=== PATIENT | female | born 1990 | race African-American/Black ===

== ENCOUNTER 2016-11-27 14:49 | Emergency (ER) | payer OTHER ==
[~2016-11-27] VITALS: Ht 162.6 cm; Wt 87.5 kg
[~2016-11-27 14:49] MED LIST: AUGMENTIN 875-1 EACH PO; FERRALET 90 TA1 EACH PO; FLONASE120 SPRAY/ NAS; FULL CIRCLE BIOT5 MG PO; IBUPROFEN600 M1 PO; LABETALOL HYDR200 MG PO; OXYCODONE-ACET1 EACH PO; PROAIR HFA8.5 GM INH; SE-NATAL 19 CH1 EACH PO; TAMIFLU75 M1 PO; TUSSIN MUC100 MG/5 M PO; ZITHROMAX Z-PA250 M1 PO
--- NOTE | 2016-11-27 15:22 | ED GENERAL ADULT ---
History of Present Illness General Chief Complaint: General Adult Stated Complaint: ELEVATED BP Source: patient, old records Exam Limitations: no limitations Vital Signs & Intake/Output Vital Signs & Intake/Output Vital Signs Date Time Temp Pulse Resp B/P Pulse O2 O2 Flow FiO2 Ox Delivery Rate 11/27 1916 86 158/98 11/27 1904 76 162/98 11/27 1827 74 156/96 11/27 1822 74 16 160/100 99 Room Air 11/27 1820 80 172/110 11/27 1813 88 172/110 11/27 1714 70 158/102 11/27 1635 74 168/118 11/27 1630 74 168/118 11/27 1609 Room Air 11/27 1606 70 16 180/118 98 Room Air 11/27 1556 96 16 210/122 11/27 1532 210/122 11/27 1454 97.6 77 18 192/122 Allergies Coded Allergies: NO KNOWN ALLERGIES (03/10/14) Reconcile Medications Hydrochlorothiazide 12.5 MG TABLET 1 TAB PO DAILY htn Ibuprofen 600 MG TABLET 1 TAB PO Q6H PRN PAIN (Reported) with food LABETALOL HCL (Labetalol Hydrochloride) 200 MG TABLET 1 TAB PO BID BP ( Reported) Labetalol HCl 300 MG TABLET 1 TAB PO BID htn Mometasone Furoate (Nasonex) 50 MCG SPRAY.PUMP 2 SPRAY NASB DAILY rhinitis Triage Note: PT SENT IN FROM [facility] FOR HTN. PT IS 1 MONTH POST . PT HAS HX OF HTN STATES SHE CALLED HER OB AND WAS TOLD THE SHE NEEDED TO GO TO PCP AND MAYBE HAVE MED INCREASED. PT DID AND THEY SENT HER HERE. Triage Nurses Notes Reviewed? yes Onset: Abrupt Duration: week(s): (1), intermittent, waxing and waning Timing: remote history Injury Environment: home Severity: mild Severity Numbers: 1 No Modifying Factors: none Associated Symptoms: DENIES : No Patient currently breastfeeds: No HPI: 26-year-old female 1 month with history of chronic hypertension presents to emergency room on labetalol 200 mg twice a day throughout her and was on lisinopril hydrochlorothiazide prior to her after she was seen by her primary care physician today and found to be hypertensive and sent here for further workup. The patient states that she was seen by her time lock expert earlier this week at which time she was told her blood pressure is high and to follow up as she was doing with her primary care today. She's been compliant with her medication. She denies any chest pain headache nausea vomiting, vision changes abdominal pain dizziness lightheadedness. She denies any complaints at this time she states that she does check her blood pressure at home and it is normally 140-160/70-90. no history of preeclampsai (JUICE FERNÁNDEZ) Past History Travel History Traveled to [place] past 21 day No Medical History Any Pertinent Medical History? see below for history Neurological: NONE EENT: NONE Cardiovascular: hypertension Respiratory: NONE Gastrointestinal: NONE Hepatic: NONE Renal: NONE Musculoskeletal: NONE Psychiatric: NONE Endocrine: NONE Blood Disorders: NONE Cancer(s): NONE GAMING HOST/Reproductive: NONE History of MRSA: Yes History of VRE: No History of CDIFF: No Surgical History Surgical History: non-contributory (5 DAYS AGO) Psychosocial History Who do you live with Mother What is your primary language Lao Tobacco Use: Never used ETOH Use: denies use Illicit Drug Use: denies illicit drug use Family History Family History, If Any: Relation not specified for: FHx: hypertension Hx Contributory? No (JUICE FERNÁNDEZ) Review of Systems Review of Systems Constitutional: Reports: see HPI. All Other Systems: Reviewed and Negative Comments Review of systems: See HPI, All other systems negative. Constitutional, no chills no fever, no malaise no weight loss HEENT: No visual changes no sore throat no congestion, no ear pain Cardiovascular: No chest pain , no palpitation , no orthopnea no ankle swelling Skin, no jaundice no rashes, no change in skin Respiratory: No dyspnea no cough no sputum no hemoptysis GI: No nausea no vomiting, no diarrhea, no bloating/constipation : No dysuria No hematuria, no frequency, no discharge Muscle skeletal: No joint pain, no joint swelling, no back pain, no neck pain, Neurologic: No numbness no confusion, no headache Psych: No stress no anxiety no depression,. Heme/endocrine: No bruising no bleeding no polyuria no polydipsia Immunology: No lymphadenopathy, no splenectomy (JUICE FERNÁNDEZ) Physical Exam Physical Exam General Appearance: well developed/nourished, alert, awake Comments: Well-developed well-nourished person in no acute distress HEENT: Normal EENT exam; PERRL, EOMI, no nystagmus. HEAD is atraumatic. moist mucous membranes. Neck: Supple, no lymphadenopathy, normal range of motion without pain or tenderness Back: Nontender, no CVA tenderness. Full range of motion Cardiovascular: Regular rate and rhythms no murmurs rubs or gallops, normal JVP Respiratory: Chest nontender.There were no bony deformities, no asymmetry. No respiratory distress. Patient speaking in full complete sentences. Breath sounds clear to auscultation bilaterally: NO W/R/R Abdomen: Soft, nontender nondistended, no appreciable organomegaly. Normal bowel sounds. No rebound/guarding, No appreciable enlargement of the abdominal aorta, No ascites. Extremity: No edema, full range of motion of extremities, normal and equal pulses bilaterally, 5 out of 5 strength noted to bilateral upper and lower extremities Neuro: Alert oriented x3, motor sensory normal, cranial nerves II through XII grossly intact. There were no obvious focal neurologic abnormalities. Skin: No appreciable rash on exposed skin, skin is warm and dry. Psych: Mood and affect is normal, memory and judgment is normal. Core Measures ACS in differential dx? No CVA/TIA Diagnosis: No Severe Sepsis Present: No Septic Shock Present: No (LISANDRA FONTENOT,JUICE) Progress Differential Diagnoses I considered the following diagnoses in my evaluation of the patient: [ Hypertensive urgency versus emergency slight abnormality acute kidney injury preeclampsia Plan of Care: Orders Procedure Date/time Status URINALYSIS 11/27 151 Complete COMPREHENSIVE METABOLIC PANEL 11/27 151 Complete CBC WITHOUT DIFFERENTIAL 11/27 151 Complete Laboratory Tests 11/27/16 1631: Urine Color STRAW, Urine Clarity CLEAR, Urine pH 7.0, Ur Specific [place] <= 1.005, Urine Protein NEG, Urine Ketones NEG, Urine Nitrite NEG, Urine Bilirubin NEG, Urine Urobilinogen 0.2, Ur Leukocyte Esterase NEG, Ur Microscopic EXAM NOT REQUIRED, Urine Hemoglobin NEG, Urine Glucose NEG 11/27/16 1554: Anion Gap 15, Estimated GFR > 60, BUN/Creatinine Ratio 11.7, Glucose 89, Calcium 9.7, Total Bilirubin 0.5, AST 19, ALT 20, Alkaline Phosphatase 105, Total Protein 8.4 H, Albumin 4.8, Globulin 3.6, Albumin/Globulin Ratio 1.3, CBC w Diff NO MAN DIFF REQ, RBC 4.42, MCV 74.5 L, MCH 24.4 L, RDW 16.0 H, MPV 8.6, Gran % 45.3, Lymphocytes % 35.6, Monocytes % 14.2 H, Eosinophils % 4.3, Basophils % 0.6, Absolute Granulocytes 2.1, Absolute Lymphocytes 1.7, Absolute Monocytes 0.7 H, Absolute Eosinophils 0.2, Absolute Basophils 0, PUBS MCHC 32.8 L Labs ordered old records reviewed patient medicated with Bentyl 20 mg by mouth case was discussed with Dr. Adkins patient denies any symptoms at this time Patient remained hypertensive treated with lisinopril hydrochlorothiazide which she was previously on interior monitor 11/27/2016 7:13:49 PM after being administered labetalol 20 mg IV blood pressure is now responding holding stable. The patient does not want to be admitted I discussed with her given that she has a blood pressure cuff at home E to monitor her blood pressures have close follow-up with her primary care physician tomorrow or Friday. Discussed with her need to return immediately if her blood pressure is elevated once again at home diastolic greater than 90 systolic greater than 170. Prescription for labetalol 300 mg twice a day provided after case was discussed with Dr. Jed hernandez. The patient feels comfortable plan I advised return anytime sooner as well as she develops any symptoms cleared for discharge (JUICE FERNÁNDEZ) Initial ED EKG: none (JUICE FERNÁNDEZ) Departure Departure Time of Disposition: 1912 Disposition: HOME OR SELF CARE Condition: Stable Clinical Impression Primary Impression: HTN (hypertension) Referrals: RAGHAV SOUZA (PCP/Family) Additional Instructions: Follow-up with your primary care physician in 24-48 hours for repeat check of your blood pressure. Continue monitoring her blood pressure at home as you've been doing. Labetalol and hydrochlorothiazide as directed. Return immediately if you have persistent elevated blood pressures as discussed here at home or he develop any concerns or any other symptoms. Departure Forms: Customer Survey General Discharge Information Prescriptions: Current Visit Scripts Labetalol HCl 1 TAB PO BID #30 TAB Hydrochlorothiazide 1 TAB PO DAILY #15 TAB Mometasone Furoate (Nasonex) 2 SPRAY NASB DAILY #1 INHAL (JUICE FERNÁNDEZ) PA/CASH APPLICATIONS SPECIALIST Co-Sign Statement Statement: ED Attending supervision documentation- [] I saw and evaluated the patient. I have also reviewed all the pertinent lab results and diagnostic results. I agree with the findings and the plan of care as documented in the PA's/CASH APPLICATIONS SPECIALIST's documentation. [X] I have reviewed the ED Record and agree with the PA's/CASH APPLICATIONS SPECIALIST's documentation. [] Additions or exceptions (if any) to the PAs/CASH APPLICATIONS SPECIALIST's note and plan are summarized below: [] (JED SINGH,KRUPA) Critical Care Note Critical Care Note Critical Care Time: non-applicable (JUICE FERNÁNDEZ)
[2016-11-27 16:02] LABS: ABSOLUTE BASOPHIL COUNT 0 /CUMM (0.0-0.2); ABSOLUTE EOSINOPHIL COUNT 0.2 /CUMM (0.0-0.7); ABSOLUTE GRANULOCYTE CT 2.1 /CUMM (1.4-6.5); ABSOLUTE LYMPH COUNT 1.7 /CUMM (1.2-3.4); ABSOLUTE MONOCYTE COUNT 0.7 /CUMM (0.10-0.60); BASOPHIL % 0.6 % (0.0-2.0); EOSINOPHIL % 4.3 % (0-5); GRANULOCYTE % 45.3 % (42.2-75.2); HEMATOCRIT 32.9 % (37-47); MEAN CORPUSCULAR HGB 24.4 PG (27.0-31.0); MEAN CORPUSCULAR HGB CONC 32.8 G/DL (33.0-37.0); MEAN CORPUSCULAR VOLUME 74.5 FL (81.0-99.0); MEAN PLATELET VOLUME 8.6 FL (7.4-10.4); PLATELET COUNT 256 /CUMM (130-400); RED BLOOD CELL CT 4.42 /CUMM (4.20-5.40); WHITE BLOOD CELL COUNT 4.7 /CUMM (4.8-10.8)
[2016-11-27] MEDS ORDERED: LABETALOL HCL300 M1 PO (19:15)
[2016-11-27] MEDS ORDERED: HYDROCHLOROTH12.5 M2 PO (19:15)
[2016-11-27 19:16] VITALS: BP 158/98
[2016-11-27] MEDS ORDERED: NASONEX17 GM NASB (19:33)
== END 2016-11-27 19:37 ==
LOC: ERH 14:49
PROVIDERS: Physician Assistant Medical
DX: I10 Essential (primary) hypertension (principal)
CPT/HCPCS: 81003; 96374

== ENCOUNTER 2018-02-07 18:08 | Emergency (ER) | payer OTHER ==
[~2018-02-07 18:08] MED LIST changes: +HYDROCHLOROTH12.5 M2 PO; +LABETALOL HCL300 M1 PO; +MIRALAX17 G1 PO; +NASONEX17 GM NASB
--- NOTE | 2018-02-07 18:16 | ED CARDIAC/CP/PALPITATIONS ---
History of Present Illness General Chief Complaint: General Adult Stated Complaint: DIFF BREATHING, C/O HIGH BLOOD PRESSURE Source: patient Exam Limitations: no limitations Vital Signs & Intake/Output Vital Signs & Intake/Output Vital Signs Date Time Temp Pulse Resp B/P B/P Pulse O2 O2 Flow FiO2 Mean Ox Delivery Rate 02/07 2237 98.4 80 22 138/80 98 Room Air 02/07 2018 98.2 74 18 146/96 98 Room Air 02/07 1939 70 142/84 02/07 1859 72 166/98 02/07 1858 100 Room Air 02/07 1845 98.4 80 20 188/120 02/07 1822 188/120 02/07 181 98.4 80 20 201/122 99 Allergies Coded Allergies: NO KNOWN ALLERGIES (03/10/14) Triage Note: PER PT CO DIFF BREATHING SINCE YESTERDAY TODAY BP IS HIGHER THAN USUAL NO RESP DISTRESS NOTED Triage Nurses Notes Reviewed? yes Onset: Gradual Duration: constant Timing: recent history Location: substernal Radiation: no radiation Nitro Today/Relief: no nitro taken today : No Patient currently breastfeeds: No HPI: Patient is a 27-year-old female with a past medical history of hypertension who presents emergency room with concerns of head congestion nasal congestion and difficulty breathing for the past 2 days. Patient has positive sick contacts at home patient became concerns of elevated blood pressure noted prior to arrival Patient is compliant with her labetalol however she states that for approximately 2 weeks she ran out of the hydrochlorothiazide medications. Denies any sore throat ear pain chest pain arm pain jaw pain nausea vomiting leg swelling hemoptysis history of DVT PE or cough (Esteban FONTENOT,Asa) Reconcile Medications Amoxicillin/Potassium Clav (Augmentin 875-125 Tablet) 875 MG-125 MG TABLET 1 TAB PO BID sinusitis Fluticasone Propionate (Flonase Allergy Relief) 50 MCG/ACTUATION SPRAY.SUSP 2 SPRAY NASB ONCE DAILY PRN congestion Fluticasone Propionate (Flonase Allergy Relief) 50 MCG/ACTUATION SPRAY.SUSP 2 SPRAY JOSIE DAILY PRN CONGESTION Hydrochlorothiazide 12.5 MG TABLET 1 TAB PO DAILY htn Hydrochlorothiazide 12.5 MG TABLET 1 TAB PO DAILY HYPERTENSION Ibuprofen 600 MG TABLET 1 TAB PO Q6H PRN PAIN (Reported) with food LABETALOL HCL (Labetalol Hydrochloride) 200 MG TABLET 1 TAB PO BID BP ( Reported) Labetalol HCl 300 MG TABLET 1 TAB PO BID htn Mometasone Furoate (Nasonex) 50 MCG SPRAY.PUMP 2 SPRAY NASB DAILY rhinitis Polyethylene Glycol 3350 (Miralax) 17 GRAM POWD.PACK 1 PAC PO DAILY PRN constipation dissolve in water (Latonya SINGH,Pietro Carson) Past History Travel History Traveled to [place] past 21 day No Medical History Any Pertinent Medical History? see below for history Neurological: NONE EENT: NONE Cardiovascular: hypertension Respiratory: NONE Gastrointestinal: NONE Hepatic: NONE Renal: NONE Musculoskeletal: NONE Psychiatric: NONE Endocrine: NONE Blood Disorders: NONE Cancer(s): NONE ROOFING SUPERVISOR/Reproductive: NONE History of MRSA: Yes History of VRE: No History of CDIFF: No Surgical History Surgical History: tubal ligation Psychosocial History Who do you live with Mother What is your primary language Northern Irish Tobacco Use: Never used Family History Family History, If Any: Relation not specified for: FHx: hypertension Hx Contributory? No (Aas Corado) Review of Systems Review of Systems Constitutional: Reports: see HPI, chills. EENTM: Reports: see HPI. Respiratory: Reports: see HPI, short of breath. Denies: cough. Cardiovascular: Reports: no symptoms. GI: Reports: no symptoms. Genitourinary: Reports: no symptoms. Musculoskeletal: Reports: no symptoms. Skin: Reports: no symptoms. Neurological/Psychological: Reports: no symptoms. Hematologic/Endocrine: Reports: no symptoms. Immunologic/Allergic: Reports: no symptoms. All Other Systems: Reviewed and Negative (Asa Corado) Physical Exam Physical Exam General Appearance: no apparent distress, alert, obese Head: atraumatic Eyes: Bilateral: normal appearance, PERRL, EOMI. Ears, Nose, Throat: normal pharynx, hearing grossly normal Neck: normal inspection Respiratory: normal breath sounds, chest non-tender, no respiratory distress Cardiovascular: regular rate/rhythm Peripheral Pulses: 2+ radial (R) Gastrointestinal: normal bowel sounds, soft, non-tender Neurologic/Psych: no motor/sensory deficits, awake, alert, oriented x 3, normal gait Skin: intact, normal color, warm/dry Core Measures ACS in differential dx? Yes CVA/TIA Diagnosis No Sepsis Present: No Sepsis Focused Exam Completed? No (Asa Corado) Progress Differential Diagnosis: AMI, aortic dissection, atrial fibrillation, cholecystitis, CHF/pulm edema, costochondritis, hyperkalemia, hypovolemia, hyperthyroid, hyperventilation, intracranial hemorrhage, musculoskeletal pain, myocarditis, pancreatitis, pericarditis, pneumonia, pneumothorax, PSVT, pulmonary embolism, PUD/GERD, PVCs/PACs, respiratory failure, sepsis, unstable angina, V-fib/V-Tach, WPW syndrome Plan of Care: Orders Procedure Date/time Status TROPONIN LEVEL 02/07 2200 Complete EKG 02/07 2200 Active RAPID VIRAL INFLUENZA A 02/07 1821 Complete TROPONIN LEVEL 02/08 1816 Complete HUMAN BETA HCG SCREEN 02/08 1816 Complete COMPREHENSIVE METABOLIC PANEL 02/08 1816 Complete CBC WITHOUT DIFFERENTIAL 02/08 1816 Complete EKG 02/07 1815 Active Laboratory Tests 02/07/182158: Troponin I < 0.01 02/07/181827: Anion Gap 12, Estimated GFR > 60, BUN/Creatinine Ratio 7.1, Glucose 97, Calcium 9.4, Total Bilirubin 0.7, AST 18, ALT 20, Alkaline Phosphatase 68, Troponin I < 0.01, Total Protein 8.3 H, Albumin 4.5, Globulin 3.8, Albumin/Globulin Ratio 1.2, Total Beta HCG NEGATIVE, CBC w Diff NO MAN DIFF REQ, RBC 4.20, MCV 77.3 L, MCH 25.1 L, MCHC 32.5 L, RDW 19.3 H, MPV 9.1, Gran % 58.5, Lymphocytes % 27.2 , Monocytes % 12.7 H, Eosinophils % 1.4, Basophils % 0.2, Absolute Granulocytes 3.9, Absolute Lymphocytes 1.8, Absolute Monocytes 0.9 H, Absolute Eosinophils 0.1, Absolute Basophils 0 Microbiology 02/07 1843 NASOPHARYN: Influenza Virus A & B Rapid Smear - COMP PERC ZERO and some pulmonary embolism, patient does not take an oral contraceptive. EKG was unremarkable patient will receive second set troponin Patient did have elevated blood pressure was given IV labetalol Patient's blood pressure improved after all by mouth hydrochlorothiazide was given discussed handoff with fernie ponce pa-c (Asa Cordao) Repeat troponin is negative. Repeat EKG shows some diffuse T-wave flattening. Patient denies any chest pain or shortness of breath currently. Her blood pressure has normalized. EKG results were discussed with Dr. Hanks. Patient will be instructed to continue her blood pressure medicine as directed. Flonase for congestion. Also apply warm compresses over the sinuses. Tylenol for pain. Follow-up with primary care doctor. Patient is requesting treatment for a sinus infection. She reports congestion and rhinorrhea sinus pain and fever of the past week. She is taking [id number] medicine without any improvement. She was given a prescription for Flonase and Augmentin. Advised her to hold Augmentin until after using Flonase and symptomatic treatment. Discussed return precautions. Patient is nontoxic-appearing she agrees the plan. (Fernie Morris) Initial ED EKG: normal p-waves, normal QRS complex, normal sinus rhythm, 57 BPM, NSR Hand-Off Endorsed To: Fernie Morris Pending: EKG, labs (Asa Corado) Repeat EKG: changed (diffuse flat t waves ) (Fernie Morris) Departure Departure Disposition: STILL A PATIENT Condition: Stable Clinical Impression Primary Impression: Hypertension Referrals: Mirlande Magana APRN (PCP/Family) Additional Instructions: As discussed continue previously prescribed labetalol and begin the prescription of hydrochlorothiazide as directed prescript is waiting at YOUR pharmacy. Follow up on Friday with your doctor. If symptoms worsen return to emergency room. Begin [id number] Sudafed Begin the prescription of Flonase for congestion Departure Forms: Customer Survey General Discharge Information (Asa Corado) Departure Prescriptions: Current Visit Scripts Amoxicillin/Potassium Clav (Augmentin 875-125 Tablet) 1 TAB PO BID #10 TAB Fluticasone Propionate (Flonase Allergy Relief) 2 SPRAY NASB ONCE DAILY PRN congestion #1 BOT Hydrochlorothiazide 1 TAB PO DAILY #30 TAB Fluticasone Propionate (Flonase Allergy Relief) 2 SPRAY JOSIE DAILY PRN CONGESTION #1 BOT (Fernie Morris) PA/PERSONAL INJURY SPECIALIST Co-Sign Statement Statement: ED Attending supervision documentation- [] I saw and evaluated the patient. I have also reviewed all the pertinent lab results and diagnostic results. I agree with the findings and the plan of care as documented in the PA's/PERSONAL INJURY SPECIALIST's documentation. [x] I have reviewed the ED Record and agree with the PA's/PERSONAL INJURY SPECIALIST's documentation. [] Additions or exceptions (if any) to the PAs/PERSONAL INJURY SPECIALIST's note and plan are summarized below: [] (Latonya SINGH,Pietro Carson) Critical Care Note Critical Care Note Critical Care Time: non-applicable (Asa Corado)
[2018-02-07] MEDS ORDERED: HYDROCHLOROTH12.5 M2 PO (18:53)
[2018-02-07] MEDS ORDERED: FLONASE ALLERG9.9 ML NAS (18:54)
[2018-02-07 18:58] LABS: ABSOLUTE BASOPHIL COUNT 0 /CUMM (0.0-0.2); ABSOLUTE EOSINOPHIL COUNT 0.1 /CUMM (0.0-0.7); ABSOLUTE GRANULOCYTE CT 3.9 /CUMM (1.4-6.5); ABSOLUTE LYMPH COUNT 1.8 /CUMM (1.2-3.4); ABSOLUTE MONOCYTE COUNT 0.9 /CUMM (0.10-0.60); BASOPHIL % 0.2 % (0.0-2.0); EOSINOPHIL % 1.4 % (0-5); GRANULOCYTE % 58.5 % (42.2-75.2); HEMATOCRIT 32.5 % (37-47); MEAN CORPUSCULAR HGB 25.1 PG (27.0-31.0); MEAN CORPUSCULAR HGB CONC 32.5 G/DL (33.0-37.0); MEAN CORPUSCULAR VOLUME 77.3 FL (81.0-99.0); MEAN PLATELET VOLUME 9.1 FL (7.4-10.4); PLATELET COUNT 277 /CUMM (130-400); RBC DISTRIBUTION WIDTH 19.3 % (11.5-14.5); WHITE BLOOD CELL COUNT 6.7 /CUMM (4.8-10.8)
--- NOTE | 2018-02-07 20:20 | RADIOLOGY REPORT ---
EXAMINATION: XR CHEST CLINICAL INFORMATION: Shortness of breath COMPARISON: None TECHNIQUE: 2 views of the chest were obtained. FINDINGS: No significant abnormality is noted involving the heart, lungs, mediastinum, bony thorax or soft tissues. IMPRESSION: Unremarkable examination.
[2018-02-07 22:37] VITALS: BP 138/80
[2018-02-07] MEDS ORDERED: AUGMENTIN 875-1 EACH PO (22:49)
[2018-02-07] MEDS ORDERED: FLONASE ALLERG9.9 ML NASB (22:50)
== END 2018-02-07 23:03 ==
LOC: ERH 18:08
PROVIDERS: Physician Assistant
DX: I10 Essential (primary) hypertension (principal)
CPT/HCPCS: 71046; 87804; 87804-59; 93005; 93010; 96374; 99291